=== PATIENT | female | born 1990 | race American Indian/Alaskan Native ===

== ENCOUNTER 2016-04-24 16:13 | Emergency (ER) | payer SELFPAY ==
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
[2016-04-24 20:33] VITALS: BP 125/74
== END 2016-04-24 20:32 | disposition home or self-care (01) ==
LOC: ED 16:13
DX: O26.891 Other specified pregnancy related conditions, first trimester (principal); S00.12XA Contusion of left eyelid and periocular area, initial encounter; Z3A.01 Less than 8 weeks gestation of pregnancy; Z87.891 Personal history of nicotine dependence; W51.XXXA Accidental striking against or bumped into by another person, initial encounter; Y93.9 Activity, unspecified; Y99.9 Unspecified external cause status; Y92.89 Other specified places as the place of occurrence of the external cause
CPT/HCPCS: 99282

== ENCOUNTER 2017-06-16 17:29 | Emergency (ER) | payer MEDICAID ==
[2017-06-16 17:36] VITALS: BP 123/79
[2017-06-16 18:16] LABS: Basophils % (Auto) 0.3 % (0.0-1.8); Eosinophils # (Auto) 0.1 K/mm3 (0.0-0.4); Eosinophils % (Auto) 1.1 % (0.0-4.3); Hematocrit 37.7 % (30.3-42.9); Hemoglobin 13.1 gm/dl (10.1-14.3); Lymphocytes % (Auto) 41.8 % (13.4-35.0); Mean Corpuscular HGB Conc 35 % (30-34); Mean Corpuscular Hemoglobin 31 pg (28-32); Mean Corpuscular Volume 89 fl (79-97); Monocytes # (Auto) 0.7 K/mm3 (0.0-0.8); Monocytes % (Auto) 9.4 % (0.0-7.3); Platelet Count 237 K/mm3 (140-440); Red Blood Count 4.23 M/mm3 (3.65-5.03); Red Cell Distribution Width 12.9 % (13.2-15.2)
--- NOTE | 2017-06-16 18:27 | Emergency Department Report ---
HPI - General Chief Complaint: Medical Clearance Time Seen by Provider: 06/16/17 18:25 - HPI HPI: She went to donate plasma but when she got stuck she didn't feel well. Complaining of nausea, dizziness, she was told that her iron might be low. Symptoms have since resolved. ED Past Medical Hx - Past Medical History Hx Hypertension: No Hx Heart Attack/AMI: No Hx Congestive Heart Failure: No Hx Diabetes: No Hx Deep Vein Thrombosis: No Hx Renal Disease: No Hx Sickle Cell Disease: No Hx Seizures: No Hx Asthma: No Hx COPD: No Hx HIV: No Additional medical history: denies - Surgical History Additional Surgical History: ORAL SURGERY - Social History Smoking Status: Never Smoker Substance Use Type: Alcohol - Medications Home Medications: Home Medications Medication Instructions Recorded Confirmed Last Taken Type No Known Home Medications [No 09/26/15 09/26/15 Unknown History Reported Home Medications] ED Review of Systems ROS: Stated complaint: ABNORMAL LABS/DIZZINESS Other details as noted in HPI Comment: All other systems reviewed and negative Cardiovascular: denies: chest pain, palpitations Gastrointestinal: denies: abdominal pain, nausea, vomiting Skin: denies: rash, lesions Neurological: weakness. denies: numbness, paresthesias, confusion Physical Exam - Physical Exam Vital Signs: Vital Signs 06/16/17 17:32 Temperature 98.6 F Pulse Rate 74 Respiratory 18 Rate Blood Pressure 123/79 O2 Sat by Pulse 99 Oximetry Physical Exam: - Physical Exam Physical Exam: - General Limitations: No Limitations General appearance: alert, in no apparent distress. - Head Head exam: Present: atraumatic, normocephalic - Eye Eye exam: Present: normal appearance - ENT ENT exam: Present: mucous membranes moist - Neck Neck exam: Present: normal inspection - Respiratory Respiratory exam: Present: normal lung sounds bilaterally. Absent: respiratory distress - Cardiovascular Cardiovascular Exam: Present: normal rhythm. Absent: systolic murmur, diastolic murmur, rubs, gallop - GI/Abdominal GI/Abdominal exam: Present: soft, normal bowel sounds - Extremities Exam Extremities exam: Present: normal inspection - Back Exam Back exam: Present: normal inspection - Neurological Exam Neurological exam: Present: alert, oriented X3 - Psychiatric Psychiatric exam: normal affect and mood - Skin Skin exam: Present: warm, dry, intact, normal color. Absent: rash ED Course Vital Signs 06/16/17 17:32 Temperature 98.6 F Pulse Rate 74 Respiratory 18 Rate Blood Pressure 123/79 O2 Sat by Pulse 99 Oximetry ED Medical Decision Making - Lab Data Result diagrams: 06/16/17 18:00 06/16/17 18:00 Critical care attestation.: If time is entered above; I have spent that time in minutes in the direct care of this critically ill patient, excluding procedure time. ED Disposition Clinical Impression: Weakness Disposition: DC-01 TO HOME OR SELFCARE Is pt being admited?: No Does the pt Need Aspirin: No Condition: Stable Instructions: Weakness (ED) Referrals: [facility] [Other] - 3-5 Days
[2017-06-16 18:32] LABS: Alanine Aminotransferase 12 units/L (7-56); Albumin 3.7 g/dL (3.9-5); BUN/Creatinine Ratio 14; Blood Urea Nitrogen 10 mg/dL (7-17); Calcium 8.7 mg/dL (8.4-10.2); Hemolysis Index 7
== END 2017-06-16 19:18 | disposition home or self-care (01) ==
LOC: ED 17:29
DX: R53.1 Weakness (principal); R42 Dizziness and giddiness; R11.0 Nausea
CPT/HCPCS: 36415; 80053; 85025; 99283

== ENCOUNTER 2018-04-25 23:52 | Emergency (ER) | payer MEDICAID ==
[2018-04-26 00:04] VITALS: BP 141/84
[2018-04-26] MEDS ORDERED: TYLENOL PO ONE (00:28)
[2018-04-26 01:01] LABS: HCG Qualitative,Urine Negative (Negative)
--- NOTE | 2018-04-26 02:08 | XRay Report ---
PROCEDURE: XR MANDIBLE 4+V TECHNIQUE: Mandible complete, minimum of 4 views, including PA, lateral, Early, and both oblique pro jections. HISTORY: Left jaw pain COMPARISONS: None . FINDINGS: Bone mineralization: Normal . Fractures: None . Paranasal sinuses: Clear . IMPRESSION: Normal Examination . This document is electronically signed by Danielle Reece DO., April 26 2018 02:06:58 AM ET
[2018-04-26] MEDS ORDERED: IBUPROFEN PO ONE (02:45)
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
== END 2018-04-26 03:07 | disposition home or self-care (01) ==
LOC: ED 23:52
DX: S00.83XA Contusion of other part of head, initial encounter (principal); F17.200 Nicotine dependence, unspecified, uncomplicated; V89.2XXA Person injured in unspecified motor-vehicle accident, traffic, initial encounter; Y93.89 Activity, other specified; Y92.488 Other paved roadways as the place of occurrence of the external cause; Y99.8 Other external cause status
CPT/HCPCS: 70110; 81025; 99283

== ENCOUNTER 2018-09-22 16:02 | Outpatient (CLI) | payer MEDICAID ==
[2018-09-22] MEDS ORDERED: TYLENOL PO ONE (16:40)
[2018-09-22 18:07] LABS: Bacteria,Urine 2+ /HPF (Negative); Bilirubin,Urine NEG (Negative); Blood,Urine SM (Negative); Color,Urine Yellow (Yellow); Protein,Urine <15 mg/dL mg/dL (Negative)
[2018-09-22 18:15] LABS: Amphetamine Screen,Urine PRESUMPTIVE NEGATIVE; Benzodiazepines Screen,Urine PRESUMPTIVE NEGATIVE; Cocaine Screen,Urine PRESUMPTIVE NEGATIVE; Methadone Screen,Urine PRESUMPTIVE NEGATIVE; Opiate Screen,Urine PRESUMPTIVE NEGATIVE
[2018-09-22 18:37] LABS: Cannabinoid Screen,Urine PRESUMPTIVE POSITIVE
[2018-09-22] MEDS ORDERED: ROCEPHIN/NS 1 GM/50 ML 1 GM/50 ML BAG IV SCH (18:44)
[2018-09-22 19:35] VITALS: BP 124/69
== END 2018-09-22 19:45 | disposition home or self-care (01) ==
LOC: TRG 16:02
PROVIDERS: ATTEND Obstetrics & Gynecology
DX: O47.02 False labor before 37 completed weeks of gestation, second trimester (principal); O09.212 Supervision of pregnancy with history of pre-term labor, second trimester; O99.322 Drug use complicating pregnancy, second trimester; F12.90 Cannabis use, unspecified, uncomplicated; Z3A.20 20 weeks gestation of pregnancy
CPT/HCPCS: 80307; 81001; 87086; 96365; J0696

== ENCOUNTER 2018-11-27 11:59 | Outpatient (CLI) | payer MEDICAID, OTHER ==
[2018-11-27 12:32] VITALS: BP 111/65
[2018-11-27 12:50] LABS: Bilirubin,Urine NEG (Negative); Blood,Urine NEG (Negative); Color,Urine Yellow (Yellow); Mucus,Urine FEW /HPF; Protein,Urine <15 mg/dL mg/dL (Negative)
[2018-11-27] MEDS ORDERED: TYLENOL PO ONE (13:50)
[2018-11-27] MEDS ORDERED: LACTATED RINGERS 1,000 ML IV SCH (14:00)
--- NOTE | 2018-11-27 14:03 | Ultrasound Report ---
ULTRASOUND BIOPHYSICAL PROFILE INDICATION: well being. COMPARISON: None available. FINDINGS: heart rate is 137 beats per minute. breathing movement = 2 Gross body movement = 2 tone = 2 Qualitative amniotic fluid volume = 2 IMPRESSION: biophysical profile = 09/18 Signer Name: Kem Veronica Jr, MD Signed: 11/27/2018 1:59 PM Workstation Name: [id number]
== END 2018-11-27 17:11 | disposition home or self-care (01) ==
LOC: TRG 11:59
PROVIDERS: ATTEND Obstetrics & Gynecology
DX: O9A.213 Injury, poisoning and certain other consequences of external causes complicating pregnancy, third trimester (principal); M54.5 Low back pain; O99.323 Drug use complicating pregnancy, third trimester; F12.90 Cannabis use, unspecified, uncomplicated; Z3A.29 29 weeks gestation of pregnancy; Z87.891 Personal history of nicotine dependence; W01.0XXA Fall on same level from slipping, tripping and stumbling without subsequent striking against object, initial encounter; Y93.89 Activity, other specified; Y92.89 Other specified places as the place of occurrence of the external cause; Y99.0 Civilian activity done for income or pay
CPT/HCPCS: 76819; 81001; 96360; 96361; J7120

== ENCOUNTER 2019-01-14 02:34 | Outpatient (CLI) | payer MEDICAID ==
[2019-01-14 03:06] VITALS: BP 117/74
== END 2019-01-14 04:08 | disposition home or self-care (01) ==
LOC: TRG 02:34
PROVIDERS: ATTEND Obstetrics & Gynecology
DX: O47.03 False labor before 37 completed weeks of gestation, third trimester (principal); Z3A.36 36 weeks gestation of pregnancy
CPT/HCPCS: 59025

== ENCOUNTER 2019-01-30 16:36 | Inpatient (IN) | payer MEDICAID ==
[2019-01-30] MEDS ORDERED: ONDANSETRON 4 MG/2 ML INJ IV PRN (16:40)
[2019-01-30] MEDS ORDERED: LIDOCAINE (2%) 20 MG/1 ML VIAL 20 ML MDV INFILTRATI ONE (16:40)
[2019-01-30] MEDS ORDERED: TERBUTALINE 1 MG/1 ML INJ SUB-Q PRN (16:40)
[2019-01-30] MEDS ORDERED: AMPICILLIN/NS 2 GM/100 ML 2 GM/100 ML BAG IV ONE (16:40)
[2019-01-30] MEDS ORDERED: MINERAL OIL 30 ML ORAL LIQD PO PRN (16:40)
[2019-01-30] MEDS ORDERED: ePHEDrine SULFATE 50 MG/1 ML INJ IV PRN ×2 (16:40→22:31)
--- NOTE | 2019-01-30 16:47 | History and Physical Report ---
History of Present Illness Date of examination: 01/30/19 Date of admission: 01/30/19 16:36 Chief complaint: labor, direct admit from office 5cms History of present illness: EDC Calculations LMP: 02/06/2019 Past History : 3 Term Births: 1 Premature Births: 1 Living Children: 2 Para: 2 Mult. Births: 0 Prev : 0 Prev. attempt? 0 Aborta: 0 Elect. Ab: 0 Spont. Ab: 0 Ectopics: 0 # 1 Delivery date: 04/07/2011 Weeks Gestation: 28 labor: no Delivery type: Hours of labor: 18 Anesthesia type: epidural Delivery [facility] Infant Sex: Female weight: 2-15 Name: Lexis Comments: Induction for pre-eclampsia # 2 Delivery date: 03/16/2014 Weeks Gestation: 37 Delivery type: Vaginal Anesthesia type: epidural Delivery location: [facility] Sex: male weight: 7.31 Comments: patient with prolong ROM Past Medical History: Reviewed history from 10/05/2013 and no changes required: Hypertension Past Surgical History: Reviewed history from 10/05/2013 and no changes required: Negative Past Surgical History Past Medical History Abnormal PAP: negative Social Hx: Patient is single [employer] Infection History Hx of STD: trich HIV Risk Eval: low risk Hepatitis B Risk Eval: low risk Personal hx. of genital herpes: yes Partner hx. of genital herpes: no Rash, Viral, or Febrile illness since last LMP? no Varicella/Chicken Pox Status: Previous Disease Genetic History Congenital Heart Defect: Mom: no Dad: no Mahesh Disease: Mom: no Dad: no Thalassemia Mom: no Dad: no Neural Tube Defect Mom: no Dad: no Down's Syndrome Mom: no Dad: no Mikael-Sachs Mom: no Dad: no Sickle Cell Disease/Trait Mom: no Dad: no Hemophilia Mom: no Dad: no Muscular Dystrophy Mom: no Dad: no Cystic Fibrosis Mom: no Dad: no [place] Chorea Mom: no Dad: no Mental Retardation Mom: no Dad: no Fragile X Mom: no Dad: no Other Genetic/Chromosomal Disorder Mom: no Dad: no Child w/other defect Mom: no Dad: no Enviromental Exposures Xray Exposure: no Medication, drug, or alcohol use since LMP: no Chemical/Other Exposure: no Exposure to Cat Liter: no Hx of Parvovirus (Fifth Disease): no Occupational Exposure to Children: none Current Allergies (reviewed today): No known allergies Past History Past Medical History: other (see HPI) Past Surgical History: other (see HPI) [employer] History: other (see HPI) Family/Genetic History: other Social history: other (recently incarcerated 10/2018-01/14/2019) - Obstetrical History Expected Date of Delivery: 02/06/19 Actual Gestation: 39 Week(s) 0 Day(s) : 3 Para: 2 Hx # Term Pregnancies: 1 Number of Pregnancies: 1 Spontaneous Abortions: 0 Induced : 0 Number of Living Children: 2 Medications and Allergies Allergies Allergy/AdvReac Type Severity Reaction Status Date / Time No Known Allergies Allergy Verified 01/14/19 02:55 Home Medications Medication Instructions Recorded Confirmed Last Taken Type Ondansetron (Nf) [Zofran TAB] 8 mg PO Q8HR PRN 09/22/18 09/22/18 Unknown History Vit-Fe Fumar-FA [ 1 tab PO QDAY 09/22/18 09/22/18 Unknown History Vitamin] Review of Systems All systems: negative - Physical Exam Breasts: Positive: normal Cardiovascular: Regular rate Lungs: Positive: Normal air movement Abdomen: Positive: normal appearance, soft Genitourinary (Female): Positive: normal external genitalia, normal perenium Vulva: both: normal Vagina: Positive: normal moisture Uterus: Positive: normal size, normal contour Anus/Rectum: Positive: normal perianal skin Extremities: Positive: normal - Obstetrical FHR: auscultation normal Uterine Contraction Monitor Mode: External Cervical Dilatation: 5 (vertex, posterior) Cervical Effacement Percentage: 80 station: -1 Uterine Tone Measurement Phase: Resting Results All other labs normal. Assessment and Plan pt presented to office today for evaluation d/t c/o leaking since last night. OMAYRA 14 but baby found to be measuring small with all measurements = or <10th%. suspect head measurements are skewed d/t head being well engaged in pelvis making accurate measurements difficult. EFW 6#7oz. SVE 5/80/-1, posterior and soft. Patient has not been seen in the office since early October d/t being incarcerated. Patient states she refused care while in [facility]. Admission orders in EMR. GBS collected in office today, will treat for unknown GBS. - Patient Problems (1) IUGR (intrauterine growth restriction) Current Visit: Yes Status: Acute Plan to address problem: augment labor (2) Non-compliance Current Visit: Yes Status: Acute (3) 39 weeks gestation of Current Visit: Yes Status: Acute (4) HTN (hypertension) Current Visit: Yes Status: Acute Qualifiers: Hypertension type: essential hypertension Qualified Code(s): I10 - Essential (primary) hypertension
[2019-01-30] MEDS ORDERED: LACTATED RINGERS 1,000 ML IV SCH (17:00)
[2019-01-30] MEDS ORDERED: OXYTOCIN 20 UNIT/1000ML DRIP 20 UNITS/1,000 ML BAG IV SCH (17:00)
[2019-01-30] MEDS ORDERED: OXYTOCIN DRIP 30 UNITS/500 ML BAG IV SCH (17:00)
[2019-01-30 17:49] LABS: Amphetamine Screen,Urine PRESUMPTIVE NEGATIVE; Cannabinoid Screen,Urine PRESUMPTIVE NEGATIVE; Cocaine Screen,Urine PRESUMPTIVE NEGATIVE; Methadone Screen,Urine PRESUMPTIVE NEGATIVE; Opiate Screen,Urine PRESUMPTIVE NEGATIVE
[2019-01-30 18:15] LABS: Benzodiazepines Screen,Urine PRESUMPTIVE NEGATIVE
[2019-01-30 18:57] LABS: Mean Corpuscular HGB Conc 37 % (30-34); Mean Corpuscular Volume 90 fl (79-97); Platelet Count 225 K/mm3 (140-440); Red Blood Count 3.35 M/mm3 (3.65-5.03); Red Cell Distribution Width 13.6 % (13.2-15.2)
[2019-01-30 19:03] LABS: Hematocrit 30.2 % (30.3-42.9); Hemoglobin 11.1 gm/dl (10.1-14.3)
[2019-01-30] MEDS ORDERED: AMPICILLIN/NS 1 GM/50 ML 1 GM/50 ML BAG IV SCH (20:41)
[2019-01-30] MEDS ORDERED: fentaNYL 100 MCG/2 ML INJ IV ONE (21:40)
[2019-01-30] MEDS ORDERED: NALOXONE 2 MG/2 ML INJ IV PRN (22:31)
--- NOTE | 2019-01-30 22:33 | Anesthesia Consultation ---
Anesthesia Consult and Med Hx Date of service: 01/30/19 - Airway Anesthetic Teeth Evaluation: Good ROM Head & Neck: Adequate Mental/Hyoid Distance: Adequate Mallampati Class: Class II Intubation Access Assessment: Good - Pulmonary Exam CTA: Yes - Cardiac Exam Cardiac Exam: RRR - Pre-Operative Health Status ASA Pre-Surgery Classification: ASA2 Proposed Anesthetic Plan: Epidural, Spinal - Pulmonary Hx Asthma: No COPD: No Hx Pneumonia: No - Cardiovascular System Hx Hypertension: No Hx Coronary Artery Disease: No Hx Heart Attack/AMI: No Hx Angina: No - Central Nervous System Hx Seizures: No Hx Psychiatric Problems: No - Endocrine Hx Renal Disease: No Hx End Stage Renal Disease: No Hx Hypothyroidism: No Hx Hyperthyroidism: No - Hematic Hx Anemia: No Hx Sickle Cell Disease: No - Other Systems Hx Alcohol Use: No
[2019-01-30] MEDS ORDERED: DEXMEDETOMIDINE 200 MCG/2 ML VIAL IV ONE (22:37)
[2019-01-30] MEDS ORDERED: fentaNYL-BUPIV 2 MCG/ML-0.125% 200 MCG/100 ML BAG EPIDURAL SCH (23:00)
[2019-01-31] MEDS ORDERED: WITCH HAZEL/ GLYCERIN PAD TP PRN (02:29)
[2019-01-31] MEDS ORDERED: ACETAMINOPHEN 325 MG TAB PO PRN (02:29)
[2019-01-31] MEDS ORDERED: ONDANSETRON 4 MG/2 ML INJ IV PRN (02:29)
[2019-01-31] MEDS ORDERED: PROMETHAZINE 25 MG RECT SUPP PR PRN (02:29)
[2019-01-31] MEDS ORDERED: PROMETHAZINE 25 MG TAB PO PRN (02:29)
[2019-01-31] MEDS ORDERED: LANOLIN/ZINC/DIMETHICONE (LANSINOH) 7 GM TP PRN (02:29)
[2019-01-31] MEDS ORDERED: MAGNESIUM HYDROXIDE (MOM) ORAL LIQD UDC PO PRN (02:29)
[2019-01-31] MEDS ORDERED: diphenhydrAMINE 25 MG CAP PO PRN (02:29)
--- NOTE | 2019-01-31 02:35 | Procedure Note ---
OB Delivery Note - Delivery Date of Delivery: 01/31/19 Surgeon: HIRA AMAYA Estimated blood loss: 200cc - Vaginal Delivery presentation: vertex Delivery position: OA Intrapartum events: none Delivery induction: none Delivery augmentation: pitocin Delivery monitor: external FHT, external uterine Route of delivery: Delivery placenta: spontaneous Delivery cord: 3 umbilical vessels Episiotomy: none Delivery laceration: 1st degree (labial left) Anesthesia: epidural Delivery comments: Delivery as above was not complicated. Pt progressed to c/c/vtx/2+ and with <30 min of pushing delivered a live born female infant. Ant shoulder and rest of infant delivered without difficulty. was placed on maternal abdomen. Cord clamped x 2 and cut x1. Placenta delivered spontaneously intact. Lacerations noted and were hemostatic.No repairs were done. Mother and infant stable in LDR. - A at 1 minute: 8 at 5 minutes: 9 Infant Gender: Female (5lbs 13oz)
--- NOTE | 2019-01-31 10:19 | Post Anesthesia Evaluation ---
- Post Anesthesia Evaluation Patient Participated: Yes Airway Patent: Yes Stable Respiratory Function: Yes Nausea/Vomiting: No Temp > 96.8F: Yes Pain Manageable: Yes Adequeate Hydration: Yes Anesthesia Complications: No Block Receding Appropriately: Yes Patient on Ventilator: No
[2019-01-31] MEDS: IBUPROFEN 600 MG TAB PO SCH ×3 (12:20→21:00)
[2019-01-31] MEDS ORDERED: FLU VACC QUAD 2019-20 (3 YR UP)/PF 60 MCG/0.5 ML SYRINGE IM ONE (14:16)
--- NOTE | 2019-01-31 14:20 | Progress Note ---
Assessment and Plan - Patient Problems (1) Delivery normal Current Visit: Yes Status: Acute (2) HTN (hypertension) Current Visit: Yes Status: Acute Qualifiers: Hypertension type: essential hypertension Qualified Code(s): I10 - Essential (primary) hypertension Plan to address problem: BP's stable. no medication at this time (3) Non-compliance Current Visit: Yes Status: Acute Plan to address problem: Case management consultation Subjective - Subjective Date of service: 01/31/19 Principal diagnosis: PPD#1 , limited PNC Interval history: Minimal bleeding Patient reports: appetite normal, voiding normally, pain well controlled, ambulating normally Objective - Vital Signs Latest vital signs: Vital Signs Temp Pulse Resp BP BP Pulse Ox 01/31/19 12:32 98.9 F 77 18 134/85 01/31/19 09:05 98.9 F 91 H 18 134/84 01/31/19 05:15 98.4 F 84 18 131/77 98 01/31/19 04:19 72 98 01/31/19 04:14 67 100 01/31/19 04:12 75 145/89 01/31/19 04:09 84 100 01/31/19 04:04 74 99 01/31/19 03:59 71 99 01/31/19 03:57 69 140/84 01/31/19 03:54 80 99 01/31/19 03:52 100 H 81 L 01/31/19 03:49 91 H 100 01/31/19 03:44 76 100 01/31/19 03:42 77 124/78 01/31/19 03:39 80 100 01/31/19 03:34 90 100 01/31/19 03:29 84 99 01/31/19 03:28 86 133/71 01/31/19 03:24 82 100 01/31/19 03:19 89 100 01/31/19 03:14 81 100 01/31/19 03:12 81 134/90 01/31/19 03:09 91 H 100 01/31/19 03:04 77 100 01/31/19 02:59 86 100 01/31/19 02:57 96 H 130/81 01/31/19 02:54 94 H 99 01/31/19 02:49 74 100 01/31/19 02:44 77 100 01/31/19 02:42 80 127/79 01/31/19 02:39 83 100 01/31/19 02:34 82 100 01/31/19 02:29 83 100 01/31/19 02:27 99 H 117/67 01/31/19 02:24 86 100 01/31/19 02:20 101 H 103/69 01/31/19 02:18 92 H 111/62 100 01/31/19 02:16 98 H 112/66 01/31/19 02:15 100 H 120/70 01/31/19 02:13 99 H 110/55 95 01/31/19 02:11 115 H 134/70 82 L 01/31/19 02:08 98 H 103/73 100 01/31/19 02:06 107 H 118/69 01/31/19 02:05 97 H 124/72 01/31/19 02:03 98 H 100 01/31/19 02:02 96 H 121/65 01/31/19 02:00 89 126/65 01/31/19 01:59 95 H 139/79 01/31/19 01:58 79 96 01/31/19 01:53 101 H 100 01/31/19 01:52 100 H 162/124 01/31/19 01:48 84 161/82 99 01/31/19 01:44 110 H 156/84 01/31/19 01:43 107 H 100 01/31/19 01:42 120 H 176/90 01/31/19 01:38 110 H 155/80 100 01/31/19 01:37 90 212/77 01/31/19 01:34 99 H 181/79 01/31/19 01:33 100 H 95 01/31/19 01:28 103 H 99 01/31/19 01:26 68 84 01/31/19 01:24 176 H 143/78 01/31/19 01:23 105 H 99 01/31/19 01:22 90 126/80 01/31/19 01:20 83 118/74 01/31/19 01:18 72 117/77 99 01/31/19 01:16 77 119/77 01/31/19 01:14 83 120/76 01/31/19 01:13 72 100 01/31/19 01:12 68 122/73 01/31/19 01:10 75 121/69 01/31/19 01:08 74 114/72 100 01/31/19 01:06 78 113/69 01/31/19 01:04 82 115/70 01/31/19 01:03 71 100 01/31/19 01:02 72 121/72 01/31/19 01:00 82 107/69 01/31/19 00:58 68 123/74 100 01/31/19 00:56 75 116/72 01/31/19 00:54 76 110/73 01/31/19 00:53 71 100 01/31/19 00:52 72 111/69 01/31/19 00:50 74 122/73 01/31/19 00:48 77 110/68 99 01/31/19 00:46 78 113/69 01/31/19 00:44 85 108/73 01/31/19 00:43 80 100 01/31/19 00:42 83 118/75 01/31/19 00:40 78 120/73 01/31/19 00:38 92 H 115/65 100 01/31/19 00:36 85 120/68 01/31/19 00:34 92 H 118/69 01/31/19 00:33 83 100 01/31/19 00:32 44 L 121/73 01/31/19 00:30 73 118/77 01/31/19 00:28 78 112/76 96 01/31/19 00:26 75 109/72 01/31/19 00:24 71 113/72 01/31/19 00:23 68 99 01/31/19 00:22 74 109/69 01/31/19 00:20 77 108/72 01/31/19 00:18 69 112/74 97 01/31/19 00:16 82 106/72 01/31/19 00:14 75 104/69 01/31/19 00:13 74 97 01/31/19 00:12 67 114/74 01/31/19 00:10 72 110/65 01/31/19 00:08 69 122/77 99 01/31/19 00:06 76 107/67 01/31/19 00:04 60 118/78 01/31/19 00:03 64 96 01/31/19 00:02 71 121/80 01/31/19 00:00 87 101/59 01/30/19 23:58 82 109/65 97 01/30/19 23:56 82 104/64 01/30/19 23:54 69 114/64 01/30/19 23:53 71 96 01/30/19 23:52 82 105/62 01/30/19 23:50 66 112/65 01/30/19 23:48 67 130/77 94 01/30/19 23:46 88 96/58 01/30/19 23:44 72 101/63 0 L 01/30/19 23:43 67 97 01/30/19 23:42 70 123/73 01/30/19 23:40 90 101/62 01/30/19 23:38 76 116/69 97 01/30/19 23:36 75 111/78 01/30/19 23:34 83 103/69 01/30/19 23:33 83 99 01/30/19 23:32 89 106/71 01/30/19 23:30 81 108/70 01/30/19 23:28 75 118/75 98 01/30/19 23:26 85 111/69 01/30/19 23:24 92 H 106/69 01/30/19 23:23 87 99 01/30/19 23:22 76 111/70 01/30/19 23:20 90 102/63 01/30/19 23:18 91 H 112/73 99 01/30/19 23:16 79 113/70 01/30/19 23:14 90 110/68 01/30/19 23:13 91 H 99 01/30/19 23:12 90 110/71 01/30/19 23:10 82 113/76 01/30/19 23:08 76 117/75 100 01/30/19 23:06 75 126/76 01/30/19 23:04 82 119/79 01/30/19 23:03 78 99 01/30/19 23:02 70 114/74 01/30/19 23:00 72 120/79 01/30/19 22:58 90 117/79 99 01/30/19 22:56 84 116/74 01/30/19 22:54 81 123/85 01/30/19 22:53 83 123/78 100 01/30/19 22:50 109 H 200/93 12/20/19 22:47 94 H 99 1220/19 22:46 90 141/72 1220/19 22:44 88 146/79 1220/19 22:42 84 153/75 98 1220/19 22:40 103 H 164/84 1220/19 22:37 102 H 95 20/19 22:31 83 99 20/19 22:26 81 99 20/19 22:21 103 H 98 20/19 22:16 83 97 20/19 22:11 94 H 98 1220/19 22:08 83 12 141/95 1220/19 22:06 84 100 20/19 22:01 98 H 98 20/19 21:53 85 99 20/19 21:48 91 H 98 20/19 21:43 113 H 98 20/19 21:38 90 99 20/19 21:33 92 H 99 20/19 21:28 83 99 20/19 21:23 84 99 20/19 21:18 91 H 99 20/19 21:13 95 H 97 20/19 21:10 98 H 115/76 1220/19 21:08 96 H 98 20/19 21:03 98 H 98 20/19 21:01 93 H 146/72 1220/19 20:58 91 H 98 1220/19 20:47 92 H 99 1220/19 20:42 115 H 97 1220/19 20:37 91 H 98 1220/19 20:32 88 97 1220/19 20:27 78 98 1220/19 20:22 92 H 99 1220/19 20:17 89 99 1220/19 20:11 93 H 99 1220/19 20:06 86 98 1220/19 20:01 85 98 12/20/19 19:56 83 98 1220/19 19:51 84 98 1220/19 19:46 95 H 100 1220/19 19:41 78 99 12/20/19 19:36 87 98 12/20/19 19:31 99 H 99 1220/19 19:26 88 100 1220/19 19:13 73 122/88 99 12/20/19 18:26 90 99 01/30/19 17:17 99.4 F 80 20 127/78 97 Intake and Output 01/30/19 01/31/19 01/31/19 22:59 06:59 14:59 Intake Total 960 Output Total 157 550 2449 Balance -225 -800 -540 Intake: Oral 960 Output: Urine 164 257 9102 Indwelling Catheter 800 Void 225 1500 Other: Total, Intake Amount 480 Total, Output Amount 225 800 900 # Voids Void 1 1 Weight 92.986 kg Estimated Blood Loss 200 - Exam Breasts: Present: normal Lungs: Present: Normal air movement Abdomen: Present: normal appearance, soft, guarding. Absent: distention, tenderness Uterus: Present: fundal height below umbilicus. Absent: tenderness Extremities: Present: normal - Labs Labs: Abnormal lab results 01/30/19 Range/Units 18:00 RBC 3.35 L (3.65-5.03) M/mm3 Hct 30.2 L (30.3-42.9) % MCH 33 H (28-32) pg MCHC 37 H (30-34) %
[2019-01-31 14:45] LABS: Hematocrit 27.3 % (30.3-42.9); Hemoglobin 9.8 gm/dl (10.1-14.3); Mean Corpuscular HGB Conc 36 % (30-34); Mean Corpuscular Volume 90 fl (79-97); Platelet Count 192 K/mm3 (140-440); Red Blood Count 3.02 M/mm3 (3.65-5.03); Red Cell Distribution Width 13.5 % (13.2-15.2)
[2019-01-31 15:03] LABS: Alanine Aminotransferase 15 units/L (7-56); Uric Acid 3.9 mg/dL (3.5-7.6)
[2019-02-01] MEDS: IBUPROFEN 600 MG TAB PO SCH ×4 (02:00→23:45)
[2019-02-01] MEDS ORDERED: TETANUS,DIPH,PERTUSS(ACELL) VACCINE 0.5 ML SYRINGE IM ONE (06:00)
--- NOTE | 2019-02-01 10:58 | Discharge Summary ---
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:: no Additional Physician Instructions: No PNC since 10/2018 d/t incarceration Primary care physician: BRENDA CORONADO Hospitalization Reason for admission: induction of labor ( IOL) Delivery: Episiotomy: none Laceration: other Other procedures: none complications: none Discharge diagnosis: IUP at term delivered [place] baby: female Hospital course: No complaints, minimal bleeding Breast soft, no s/s engorgement Abd soft, NT, uterus firm, below umbilicus NT Exts: No edema NT Normal Condition at discharge: Good Disposition: DC-01 TO HOME OR SELFCARE - Discharge Diagnoses (1) Delivery normal Status: Acute (2) HTN (hypertension) Status: Acute Qualifiers: Hypertension type: essential hypertension Qualified Code(s): I10 - Essential (primary) hypertension (3) Non-compliance Status: Acute (4) Anemia Status: Acute Qualifiers: Other causes of anemia: acute posthemorrhagic Comment: Not present on admission Plan - Provider Discharge Summary Activity: other (No sex) Diet: routine Instructions: routine Additional instructions: [] Smoking cessation referral if applicable(refer to patient education folder for contact #) [] Refer to [facility]'s [facility] Booklet Call your doctor immediately for: * Fever > 100.5 * Heavy vaginal bleeding ( >1 pad per hour) * Severe persistent headache * Shortness of breath * Reddened, hot, painful area to leg or breast * Drainage or odor from incision. * Keep incision clean and dry at all times and follow doctor's instructions regarding bathing/showering - Follow up plan Follow up: BRENDA CORONADO MD [Primary Care Provider] - 6 Weeks
[2019-02-01 17:44] VITALS: BP 137/72
== END 2019-02-01 23:55 | disposition home or self-care (01) | DRG 775 ==
LOC: LD 16:36 → OB 01-31 05:19
PROVIDERS: ADMIT Obstetrics & Gynecology; ATTEND Obstetrics & Gynecology
PROC: 10E0XZZ Delivery of Products of Conception, External Approach (ICD-10-PCS; principal; 2019-01-31)
PROC: 3E0R3BZ Introduction of Anesthetic Agent into Spinal Canal, Percutaneous Approach (ICD-10-PCS; 2019-01-31)
PROC: 00HU33Z Insertion of Infusion Device into Spinal Canal, Percutaneous Approach (ICD-10-PCS; 2019-01-31)
PROC: 3E0234Z Introduction of Serum, Toxoid and Vaccine into Muscle, Percutaneous Approach (ICD-10-PCS; 2019-02-01)
DX: O11.4 Pre-existing hypertension with pre-eclampsia, complicating childbirth (principal); O99.02 Anemia complicating childbirth; O70.0 First degree perineal laceration during delivery; D62 Acute posthemorrhagic anemia; O36.5930 Maternal care for other known or suspected poor fetal growth, third trimester, not applicable or unspecified; Z37.0 Single live birth; Z91.14 Patient's other noncompliance with medication regimen; Z3A.39 39 weeks gestation of pregnancy; Z79.899 Other long term (current) drug therapy; Z23 Encounter for immunization
CPT/HCPCS: 36415; 80307; 82565; 83615; 84450; 84460; 84550; 85027; 86592; 86850; 86900; 86901; 87116; 87806; 88307; 90686; G0378; J0290; J2590; J3010; J3490; J7120

== ENCOUNTER 2019-12-12 06:54 | Emergency (ER) | payer MEDICAID ==
--- NOTE | 2019-12-12 09:18 | Emergency Department Report ---
Minor Respiratory - HPI Chief Complaint: Upper Respiratory Infection Stated Complaint: MOLD IN HOUSE Time Seen by Provider: 12/12/19 08:44 Duration: 2 Days Severity: mild Minor Respiratory: Yes Rhinorrhea, Yes Cough, Yes Shortness of Breath (Last night), No Sore Throat, No Able to Tolerate Fluids, No Ear Pain, No Sick Contacts, No Hemoptysis, No Chest Pain, No Fever Other History: The patient was evaluated in the emergency department for symptoms described in the history of present illness. He/she was evaluated in the context of the global COVID-19 pandemic, which necessitated consideration that the patient might be at risk for infection with the virus that causes COVID-19. Institutional protocols and algorithms that pertain to the evaluation of patients at risk for COVID-19 are in a state of rapid change based on information released by regulatory bodies including the CDC and federal and state organizations. These policies and algorithms were followed during the patient's care in the emergency department. Please note that these policies, procedures and recommendations changed on a rapid basis. 28-year-old - [place] female in no acute distress presents to the emergency room with herself and her 2 kids reporting she has cold-like symptoms. Patient states that there is mold in her home and she wants to be evaluated. Patient reports she has a runny nose nasal congestion and a little cough. She denies any fever chills no nausea no vomiting. She did states she had shortness of breath last night but none today. Patient denies any past medical history. She is able to talk in complete sentences. ED Review of Systems ROS: Stated complaint: MOLD IN HOUSE Other details as noted in HPI Comment: All other systems reviewed and negative ED Past Medical Hx - Past Medical History Previous Medical History?: No Hx Hypertension: Yes Hx Heart Attack/AMI: No Hx Congestive Heart Failure: No Hx Diabetes: No Hx Deep Vein Thrombosis: No Hx Renal Disease: No Hx Sickle Cell Disease: No Hx Seizures: No Hx Asthma: No Hx COPD: No Hx HIV: No Additional medical history: denies - Surgical History Past Surgical History?: Yes Additional Surgical History: ORAL SURGERY/Broken Mandible. - Social History Smoking Status: Current Every Day Smoker Substance Use Type: None - Medications Home Medications: Home Medications Medication Instructions Recorded Confirmed Last Taken Type Ondansetron (Nf) [Zofran TAB] 8 mg PO Q8HR PRN 09/22/18 01/30/19 Unknown History Vit-Fe Fumar-FA [ 1 tab PO QDAY 09/22/18 01/30/19 Unknown History Vitamin] Ondansetron [Zofran Odt] 4 mg PO Q8HR PRN #15 tab.rapdis 08/15/19 Unknown Rx Minor Respiratory Exam - Exam General: Vital signs noted. No distress. Alert and acting appropriately. HEENT: Yes Moist Mucous Membranes, No Pharyngeal Erythema, No Pharyngeal Exudates, No Rhinorrhea, No Conjuctival Injection, No Frontal Tenderness, No Maxillary Tenderness Ear: Neither TM Bulge, Neither TM Erythema, Neither EAC Pain, Neither EAC Discharge Neck: Yes Supple, No Adenopathy Lungs: Yes Good Air Exchange, No Wheezes, No Ronchi, No Stridor, No Cough, No Labored Respirations, No Retractions, No Use of Accessory Muscles, No Other Abnormal Lung Sounds Heart: Yes Regular, No Murmur Abdomen: Yes Normal Bowel Sounds, No Tenderness, No Peritoneal Signs Skin: No Rash, No Edema Neurologic: Alert and oriented, no deficits. Musculoskeletal: Unremarkable. ED Medical Decision Making - Medical Decision Making 28-year-old -[place] female in no acute distress presents to the emergency room with herself and her 2 kids reporting she has cold-like symptoms. Patient states that there is mold in her home and she wants to be evaluated. Patient reports she has a runny nose nasal congestion and a little cough. She denies any fever chills no nausea no vomiting. She did states she had shortness of breath last night but none today. Patient denies any past medical history. She is able to talk in complete sentences. Patient has a normal examination. I discussed with patient she can try [id number] Yaquelin or Claritin use normal saline nasal spray and to follow-up with her primary care provider. Also discussed with patient she needs to remove herself from offending agent. Critical care attestation.: If time is entered above; I have spent that time in minutes in the direct care of this critically ill patient, excluding procedure time. ED Disposition Clinical Impression: Allergic rhinitis caused by mold Disposition: DC-01 TO HOME OR SELFCARE Is pt being admited?: No Does the pt Need Aspirin: No Condition: Stable Instructions: Allergic Rhinitis (ED) Additional Instructions: Recommend [id number] Zyrtec's or Claritin. Normal saline nasal spray. And to follow-up with your primary care provider. Referrals: KATINA COHEN MD [Primary Care Provider] - 3-5 Days
== END 2019-12-12 09:42 | disposition home or self-care (01) ==
LOC: ED 06:54
DX: J30.89 Other allergic rhinitis (principal); I10 Essential (primary) hypertension; F17.200 Nicotine dependence, unspecified, uncomplicated; Z98.890 Other specified postprocedural states; Z79.899 Other long term (current) drug therapy
CPT/HCPCS: 99281

== ENCOUNTER 2020-06-28 13:11 | Emergency (ER) | payer MEDICAID ==
[2020-06-28 13:22] VITALS: BP 124/83
== END 2020-06-29 08:03 | disposition left against medical advice (07) ==
LOC: ED 13:11
DX: O20.8 Other hemorrhage in early pregnancy (principal); Z53.21 Procedure and treatment not carried out due to patient leaving prior to being seen by health care provider; Z3A.08 8 weeks gestation of pregnancy

== ENCOUNTER 2021-08-24 11:18 | Emergency (ER) | payer MEDICAID ==
[2021-08-24 12:42] LABS: Basophils % (Auto) 0.3 % (0.0-1.8); Eosinophils # (Auto) 0.1 K/mm3 (0.0-0.4); Eosinophils % (Auto) 1.4 % (0.0-4.3); Hematocrit 36.9 % (30.3-42.9); Hemoglobin 12.8 gm/dl (10.1-14.3); Lymphocytes # (Auto) 3.1 K/mm3 (1.2-5.4); Lymphocytes % (Auto) 37.2 % (13.4-35.0); Mean Corpuscular HGB Conc 35 % (30-34); Mean Corpuscular Volume 91 fl (79-97); Monocytes # (Auto) 0.7 K/mm3 (0.0-0.8); Monocytes % (Auto) 7.9 % (0.0-7.3); Platelet Count 301 K/mm3 (140-440); Red Blood Count 4.07 M/mm3 (3.65-5.03); Red Cell Distribution Width 12.9 % (13.2-15.2)
[2021-08-24 13:36] LABS: Alanine Aminotransferase 10 units/L (7-56); Albumin 4.3 g/dL (3.9-5); BUN/Creatinine Ratio 13; Blood Urea Nitrogen 10 mg/dL (7-17); Calcium 9.4 mg/dL (8.4-10.2); Hemolysis Index 5
--- NOTE | 2021-08-24 14:57 | Emergency Department Report ---
ED Female HPI - General Chief complaint: Vaginal Bleeding Stated complaint: POSSIBLE MISCARRIAGE Time Seen by Provider: 08/24/21 11:35 Source: patient Mode of arrival: Ambulatory Limitations: No Limitations - History of Present Illness Initial comments: Patient is a 30-year-old female that comes to the emergency room reporting that she is 6 weeks and having vaginal bleeding. She states that it is spotting light in nature. She denies any discharge or dysuria. She has no fever or chills. She has no abdominal pain. She has no back pain. Patient has no hypotension, tachycardia or fever. Patient is ambulatory, not ill nontoxic on arrival to the ER. MD Complaint: vaginal bleeding -: Sudden, hour(s) Severity: mild Quality: cramping Consistency: intermittent Improves with: none Are you Now?: Yes Associated Symptoms: denies other symptoms, vaginal bleeding - Related Data Sexually active: Yes : 2 Para: 1 Home Medications Medication Instructions Recorded Confirmed Last Taken Ondansetron (Nf) [Zofran TAB] 8 mg PO Q8HR PRN 09/22/18 01/30/19 Unknown Vit-Fe Fumar-FA [ 1 tab PO QDAY 09/22/18 01/30/19 Unknown Vitamin] Previous Rx's Medication Instructions Recorded Last Taken Type Ondansetron [Zofran Odt] 4 mg PO Q8HR PRN #15 tab.rapdis 08/15/19 Unknown Rx Allergies Allergy/AdvReac Type Severity Reaction Status Date / Time No Known Allergies Allergy Verified 01/14/19 02:55 ED Review of Systems ROS: Stated complaint: POSSIBLE MISCARRIAGE Other details as noted in HPI Comment: All other systems reviewed and negative ED Past Medical Hx - Past Medical History Previous Medical History?: Yes Hx Hypertension: Yes Hx Heart Attack/AMI: No Hx Congestive Heart Failure: No Hx Diabetes: No Hx Deep Vein Thrombosis: No Hx Renal Disease: No Hx Sickle Cell Disease: No Hx Seizures: No Hx Asthma: No Hx COPD: No Hx HIV: No Additional medical history: denies - Surgical History Past Surgical History?: Yes Additional Surgical History: ORAL SURGERY/Broken Mandible. - Family History Family history: no significant - Social History Smoking Status: Never Smoker Substance Use Type: None - Medications Home Medications: Home Medications Medication Instructions Recorded Confirmed Last Taken Type Ondansetron (Nf) [Zofran TAB] 8 mg PO Q8HR PRN 08/12/19 12/20/19 Unknown History Vit-Fe Fumar-FA [ 1 tab PO QDAY 09/22/18 01/30/19 Unknown History Vitamin] Ondansetron [Zofran Odt] 4 mg PO Q8HR PRN #15 tab.rapdis 08/15/19 Unknown Rx ED Physical Exam - General Limitations: No Limitations General appearance: alert, in no apparent distress - Head Head exam: Present: atraumatic, normocephalic - Eye Eye exam: Present: normal appearance - ENT ENT exam: Present: mucous membranes moist - Neck Neck exam: Present: normal inspection - Respiratory Respiratory exam: Present: normal lung sounds bilaterally. Absent: respiratory distress - Cardiovascular Cardiovascular Exam: Present: regular rate, normal rhythm. Absent: systolic mur mur, diastolic murmur, rubs, gallop - GI/Abdominal GI/Abdominal exam: Present: soft, normal bowel sounds - Extremities Exam Extremities exam: Present: normal inspection - Back Exam Back exam: Present: normal inspection - Neurological Exam Neurological exam: Present: alert, oriented X3 - Psychiatric Psychiatric exam: Present: normal affect, normal mood - Skin Skin exam: Present: warm, dry, intact, normal color. Absent: rash ED Medical Decision Making - Lab Data Result diagrams: 08/24/21 11:51 08/24/21 11:51 - Radiology Data Radiology results: report reviewed, image reviewed - Medical Decision Making Labs 08/24/21 08/24/21 08/24/21 11:51 11:51 11:51 WBC 8.4 RBC 4.07 Hgb 12.8 Hct 36.9 MCV 91 MCH 31 MCHC 35 H RDW 12.9 L Plt Count 301 Lymph % (Auto) 37.2 H [place] % (Auto) 7.9 H Eos % (Auto) 1.4 Baso % (Auto) 0.3 Lymph # (Auto) 3.1 [place] # (Auto) 0.7 Eos # (Auto) 0.1 Baso # (Auto) 0.0 Seg Neutrophils % 53.2 Seg Neutrophils # 4.5 Sodium 139 Potassium 4.2 Chloride 106.2 Carbon Dioxide 24 Anion Gap 13 BUN 10 Creatinine 0.8 Estimated GFR > 60 BUN/Creatinine Ratio 13 Glucose 85 Calcium 9.4 Total Bilirubin 0.90 AST 12 ALT 10 Alkaline Phosphatase 66 Total Protein 7.3 Albumin 4.3 Albumin/Globulin Ratio 1.4 HCG, Quant 61.46 H Urine Color Urine Turbidity Urine pH Ur Specific [place] Urine Protein Urine Glucose (UA) Urine Ketones Urine Blood Urine Nitrite Urine Bilirubin Urine Urobilinogen Ur Leukocyte Esterase Urine WBC (Auto) Urine RBC (Auto) Blood Type Ord Rhogam Gestat Weeks 08/24/21 08/24/21 11:51 Unknown WBC RBC Hgb Hct MCV MCH MCHC RDW Plt Count Lymph % (Auto) [place] % (Auto) Eos % (Auto) Baso % (Auto) Lymph # (Auto) [place] # (Auto) Eos # (Auto) Baso # (Auto) Seg Neutrophils % Seg Neutrophils # Sodium Potassium Chloride Carbon Dioxide Anion Gap BUN Creatinine Estimated GFR BUN/Creatinine Ratio Glucose Calcium Total Bilirubin AST ALT Alkaline Phosphatase Total Protein Albumin Albumin/Globulin Ratio HCG, Quant Urine Color Yellow Urine Turbidity Slightly-cloudy Urine pH 6.0 Ur Specific [place] 1.023 Urine Protein 100 mg/dl Urine Glucose (UA) Neg Urine Ketones Neg Urine Blood Lg Urine Nitrite Neg Urine Bilirubin Neg Urine Urobilinogen < 2.0 Ur Leukocyte Esterase Neg Urine WBC (Auto) < 1.0 Urine RBC (Auto) < 1.0 Blood Type A POSITIVE Ord Rhog Gestat Weeks Rh pos Vital signs are normal as documented manually by the RN. UA noted. Rh+. Labs noted. Ultrasound noted. On discharge exam patient is ambulatory, nontoxic [id number] and taking p.o. notes that on the time of discharge the patient's UA had not resulted. She states that she could not wait for the results. Should her culture come back positive requiring antibiotics we need to call her. She has been advised to wait given the risk that you can have labor with UTIs. However, she refused to wait. Patient discharged home with discharge plan of care including diet, activity, medications and follow-up. Late entry on August 25--UA noted negative nitrate with negative leukocytes. However, this did reflex to culture. We need to continue to follow this and if culture pops positive patient will need to be called. - Differential Diagnosis Rule out AB, UTI, ectopic Critical care attestation.: If time is entered above; I have spent that time in minutes in the direct care of this critically ill patient, excluding procedure time. ED Disposition Clinical Impression: Vaginal bleeding during Disposition: HOME / SELF CARE / HOMELESS Is pt being admited?: No Does the pt Need Aspirin: No Condition: Stable Additional Instructions: TYLENOL FOR PAIN FOLLOW UP WITH OBGYN IN 48 HOURS FOR RECHECK TAKE THIS PAPERWORK WITH YOU PELVIC REST Referrals: KISHORE CASTILLO MD [Staff Physician] - 3-5 Days Forms: Work/School Release Form(ED) Time of Disposition: 16:11
--- NOTE | 2021-08-24 15:17 | Ultrasound Report ---
US OB transvaginal, US OB <= 14 weeks fetus REASON FOR EXAM: ABD PAIN TECHNIQUE: Transabdominal and transvaginal ultrasound was performed to evaluate a first trimester pre gnancy. COMPARISON: None available. FINDINGS: FINDINGS: No intrauterine is visualized. No suspicious adnexal mass is visualized. MATERNAL FINDINGS: Uterus: Uterus measures 9.3 x 5 x 5 cm. No myometrial mass identified. Endometrial stripe measures 12 mm. Right ovary: The right ovary measures 3.7 x 1.7 x 2.9 cm. The right ovary demonstrates a normal sonog raphic appearance and normal doppler flow. Left ovary: The left ovary measures 4.7 x 2.4 x 4.3 cm. 2 cm complex cystic structure within the left ovary likely reflects corpus luteum. Additional 1.8 cm solid structure within the left ovary, likely reflecting complex follicle. No paraovarian cyst or mass. Normal Doppler flow. Cul-de-sac: There is no free fluid. IMPRESSION: 1. No IUP identified: of unknown location. Findings could reflect an early intrauterine pr egnancy, occult ectopic , or recent spontaneous . In a hemodynamically stable patien t, recommend follow-up with pelvic ultrasound in 7-10 days. 2. 2 cm probable corpus luteum in the left ovary. Signer Name: Mumtaz Colindres MD Signed: 08/24/2021 3:11 PM Workstation Name: [id number]
[2021-08-24 16:05] LABS: Bilirubin,Urine NEG (Negative); Blood,Urine LG (Negative); Color,Urine Yellow (Yellow); Urobilinogen,Urine < 2.0 mg/dL (<2.0)
[2021-08-24 16:10] LABS: RBC,Urine < 1.0 /HPF (0.0-6.0)
[2021-08-24 16:22] LABS: Bacteria,Urine 1+ /HPF (Negative); Mucus,Urine FEW /HPF
== END 2021-08-24 13:00 | disposition home or self-care (01) ==
LOC: ED 11:18
DX: O46.91 Antepartum hemorrhage, unspecified, first trimester (principal); Z3A.01 Less than 8 weeks gestation of pregnancy
CPT/HCPCS: 36415; 76801; 76817; 80053; 81001; 84702; 85025; 86900; 86901; 87086; 99283; 99284